=== PATIENT | male | born 1945 | race Native Hawaiian/Other Pacific Islander ===

== ENCOUNTER 2021-09-10 22:16 | Emergency (ER) | payer OTHER ==
[~2021-09-10] VITALS: Ht 177.8 cm; Wt 106.6 kg
[2021-09-10 23:11] LABS: PLATELET COUNT 155 K/uL (142-355)
[2021-09-10 23:21] LABS: POTASSIUM 3.3 mmol/L (3.6-5.2)
[2021-09-10 23:53] VITALS: BP 165/98; TEMP 98
[2021-09-11] MEDS ORDERED: BENEFIBE6 PO (08:12)
[2021-09-11] MEDS ORDERED: CLOPIDOGREL75 MG PO (08:12)
[2021-09-11] MEDS ORDERED: AMLODIPINE BESYLATE PO (08:13)
[2021-09-11] MEDS ORDERED: POTASSIUM CHLO10 MEQ PO (08:14)
[2021-09-11] MEDS ORDERED: VITAMIN C 500 M1 TAB PO (08:16)
[2021-09-11] MEDS ORDERED: KP FOLIC ACID1 MG PO (08:17)
[2021-09-11] MEDS ORDERED: MULTIVITAMI1 PO (08:17)
[2021-09-11] MEDS ORDERED: MELATONIN3 M1 PO (08:18)
[2021-09-11] MEDS ORDERED: TRAZODONE HYDR150 MG PO (08:21)
[2021-09-11] MEDS ORDERED: TAMSULOSIN0.4 MG PO (08:21)
[2021-09-11] MEDS ORDERED: LIPITOR40 MG PO (08:22)
[2021-09-11] MEDS ORDERED: VALSARTAN80 MG PO (08:23)
[2021-09-11] MEDS ORDERED: HYDR25TA60 PO (08:23)
== END 2021-09-10 22:53 | disposition still patient (30) ==
LOC: ED 22:16
PROVIDERS: Emergency Medicine
DX: F03.91 Unspecified dementia, unspecified severity, with behavioral disturbance (principal); Z11.52 Encounter for screening for COVID-19; Z04.6 Encounter for general psychiatric examination, requested by authority
CPT/HCPCS: 36415; 80053; 85027; 87635; 93005; 99283; U0003

== ENCOUNTER 2021-09-24 23:00 | Emergency (ER) | payer OTHER ==
[~2021-09-24] VITALS: Ht 177.8 cm; Wt 106.6 kg
[~2021-09-24 23:00] MED LIST: AMLODIPINE BESYLATE PO; BENEFIBE6 PO; CLOPIDOGREL75 MG PO; DIVA125C PO; ESCI10TA PO; HYDR25TA60 PO; KP FOLIC ACID1 MG PO; LIPITOR40 MG PO; MELATONIN MAXIMU5 MG PO; MELATONIN3 M1 PO; MULTIVITAMI1 PO; POTASSIUM CHLO10 MEQ PO; QUET100T2 PO; QUET25TA2 PO; TAMSULOSIN0.4 MG PO; TRAZODONE HYDR150 MG PO; VALSARTAN80 MG PO; VITAMIN C 500 M1 TAB PO
[2021-09-24 23:41] LABS: PLATELET COUNT 208 K/uL (142-355)
[2021-09-24 23:46] LABS: POTASSIUM 3.2 mmol/L (3.6-5.2)
[2021-09-25 00:25] VITALS: BP 125/74; TEMP 97.6
== END 2021-09-25 00:25 | disposition still patient (30) ==
LOC: ED 23:00
PROVIDERS: Emergency Medicine
DX: R46.89 Other symptoms and signs involving appearance and behavior (principal); I10 Essential (primary) hypertension; Z11.52 Encounter for screening for COVID-19; Z04.6 Encounter for general psychiatric examination, requested by authority
CPT/HCPCS: 36415; 80053; 85027; 87635; 93005; 99283; U0003

== ENCOUNTER 2021-10-18 16:41 | Emergency (ER) | payer OTHER ==
[~2021-10-18] VITALS: Ht 177.8 cm; Wt 101.2 kg
[2021-10-18 16:41] VITALS: BP 116/83; TEMP 99
[2021-10-18 17:17] LABS: PLATELET COUNT 202 K/uL (142-355)
[2021-10-18 17:23] LABS: POTASSIUM 3.3 mmol/L (3.6-5.2)
[2021-10-18] MEDS ORDERED: MELADOX3 MG PO (21:50)
[2021-10-19] MEDS ORDERED: ESCI10TA PO (13:17)
== END 2021-10-18 18:39 | disposition still patient (30) ==
LOC: ED 16:50
PROVIDERS: Emergency Medicine
DX: F03.91 Unspecified dementia, unspecified severity, with behavioral disturbance (principal); Z11.52 Encounter for screening for COVID-19; Z04.6 Encounter for general psychiatric examination, requested by authority
CPT/HCPCS: 80053; 85027; 87635; 93005; 99283; U0003